=== PATIENT | male | born 1990 | race Caucasian/White ===

== ENCOUNTER 2017-07-14 01:39 | Emergency (ER) | payer OTHER ==
[~2017-07-14] VITALS: Ht 170.2 cm; Wt 82.0 kg
[2017-07-14 01:57] VITALS: TEMP 36.8; O2SAT 97; Ht 170.2 cm; Wt 82.0 kg
[2017-07-14 02:20] LABS: CALCIUM 9.4 mg/dl (8.5-10.1); CREATININE 1.01 mg/dl (0.60-1.40); POTASSIUM 3.6 mmol/L (3.5-5.1)
[2017-07-14 06:47] VITALS: BP 127/55; PULSE 72; O2SAT 98
--- NOTE | 2017-07-14 08:16 | EMERGENCY ROOM VISIT NOTE ---
History Report prepared by Sky: [facility] Under the Supervision of: Dr. Erica Yang D.O. First contact with patient: 01:42 Chief Complaint: ALCOHOL OVERDOSE Stated Complaint: ALCOHOL OVERDOSE History of Present Illness The patient is a 27 year old male who presents to the Emergency Room with complaints of an episode of alcohol overdose occurring prior to arrival. Per nursing staff, the patient was found stumbling outside of [employer]. They state that his friends had gone home and he had no ride home. The patient states that he was drinking beers and shots. He denies abdominal pain. The patient notes a history of kidney stones. Source of History: patient Onset: prior to arrival Position: other (global) Quality: other (global) Timing: other (epsiode) Associated Symptoms: No abdominal pain Review of Systems See HPI for pertinent positives & negatives. A total of 10 systems reviewed and were otherwise negative. Past Medical & Surgical Medical Problems: (1) Kidney stones Family History No pertinent family history Social History Alcohol Use: occasionally Marital Status: single Housing Status: lives with roommate Occupation Status: [employer] student Current/Historical Medications No Active Prescriptions or Reported Meds Allergies Coded Allergies: No Known Allergies (Unverified , 07/14/17) Physical Exam Vital Signs Date Time Temp Pulse Resp B/P (MAP) Pulse Ox O2 Delivery O2 Flow Rate FiO2 07/14/17 06:47 72 18 127/55 98 Room Air 07/14/17 06:30 65 13 102/61 97 Room Air 07/14/17 06:00 61 103/62 99 Room Air 07/14/17 05:30 68 99/70 99 Room Air 07/14/17 05:04 54 07/14/17 05:00 54 15 117/79 100 Room Air 07/14/17 04:30 55 14 97/57 98 Room Air 07/14/17 04:00 58 13 93/61 98 Room Air 07/14/17 03:30 58 15 99/57 95 Room Air 07/14/17 03:00 59 16 103/58 95 Room Air 07/14/17 02:37 61 18 103/61 96 Room Air 07/14/17 02:01 69 07/14/17 01:57 97 Room Air 07/14/17 01:57 36.8 66 18 125/65 97 Room Air Physical Exam General: Cooperative and smells of alcohol. HEENT: Head - normocephalic and atraumatic Pupils are equal, round, and reactive to light. Extraocular eye muscles are intact, and sclera are anicteric. Nose - moist nasal mucosa without discharge. Mouth - moist buccal mucosa. Oropharynx is nonerythematous and there is no tonsillar exudate or edema noted. Neck: Supple; no JVD, nuchal rigidity, cervical lymphadenopathy. Heart: Regular rate and rhythm. There is a normal S1 and S2 with no murmurs, clicks, or gallops appreciated. Lungs: Clear to auscultation bilaterally with no wheezes, rales, or rhonchi. Abdomen: Soft, completely nontender, nondistended, with good bowel sounds. There are no palpable pulsatile masses or hepatosplenomegaly. There is no guarding, rigidity, or rebound noted. Extremities: No evidence of cyanosis, clubbing, or edema. There are easily palpable peripheral pulses. Skin: warm and dry with good turgor and no rashes. Medical Decision & Procedures Laboratory Results 07/14/17 01:53 Test 07/14/17 01:53 Anion Gap 6.0 mmol/L (3-11) Est Creatinine Clear Calc Drug Dose 113.6 ml/min Estimated GFR () 118.4 Estimated GFR (Non- 102.2 BUN/Creatinine Ratio 9.6 (10-20) Calcium Level 9.4 mg/dl (8.5-10.1) Ethyl Alcohol mg/dL 233.0 mg/dl (0-3) Laboratory results per my review. ED Course 0142: Past medical records reviewed. The patient was evaluated in room B11A. A complete history and physical exam was performed. Labs were drawn as above. The patient was observed on the stained glass glazier helper and pulse oximeter. 0208: I reevaluated the patient and he is awake and comfortable. He cannot find a sober friend. 0408: I reevaluated the patient and he is sleeping. His vitals are stable. 0637: I reevaluated the patient and nurses are trying to get him awake to go home. 0702: Upon reevaluation, the patient is awake and doing well. I discussed findings and results with him. He verbalized agreement of the treatment plan. The patient was discharged home. Medical Decision The patient is a 27 year old male who presents to the Emergency Room with complaints of an episode of alcohol overdose occurring prior to arrival. Differential diagnoses include alcohol overdose, drug intoxication, hypoglycemia , head injury. LABS: Alcohol 233 Normal renal function Normal glucose This is a 27-year-old male patient who was brought the emergency department tonight after consuming too much alcohol. Denies atraumatic injuries. He denies any other drugs besides alcohol. He was easily able to follow commands. I spent some time talking to him about alcohol abuse. I encouraged him to avoid such excessive alcohol use in the future. Medication Reconcilliation Current Medication List: was personally reviewed by me Blood Pressure Screening Patient's blood pressure: Normal blood pressure Blood pressure disposition: Did not require urgent referral Impression Primary Impression: Alcohol overdose Scribe Attestation The scribe's documentation has been prepared under my direction and personally reviewed by me in its entirety. I confirm that the note above accurately reflects all work, treatment, procedures, and medical decision making performed by me. Departure Information Dispostion Home / Self-Care Prescriptions No Active Prescriptions or Reported Meds Forms HOME CARE DOCUMENTATION FORM, IMPORTANT VISIT INFORMATION Patient Instructions My [facility] Additional Instructions Rest. take plenty of clear liquids and a bland diet. Avoid such excessive alcohol use in the future Use tylenol for headache Problem Qualifiers Primary Impression: Alcohol overdose Encounter type: initial encounter Injury intent: accidental or unintentional Qualified Codes: T51.91XA - Toxic effect of unspecified alcohol , accidental (unintentional), initial encounter
== END 2017-07-14 06:56 | disposition home or self-care (01) ==
LOC: EDBD 01:39 → C.EDB 01:42
DX: T51.0X1A Toxic effect of ethanol, accidental (unintentional), initial encounter (principal); Z87.442 Personal history of urinary calculi